=== PATIENT | female | born 1960 | race Caucasian/White ===

== ENCOUNTER 2017-03-03 21:48 | Emergency (ER) | payer BC ==
[2017-03-03 22:05] VITALS: BP 153/104
[2017-03-03] MEDS ORDERED: Ketorolac 60 MG/2 ML SDV IM ONE (22:57)
--- NOTE | 2017-03-03 22:59 | EDM.PDOC ---
ED HPI GENERAL MEDICAL PROBLEM - General Chief Complaint: ENT Problem Stated Complaint: TOOTH PAIN HEADACHE Time Seen by Provider: 03/03/17 22:42 Source of Information: Reports: Patient History Limitations: Reports: No Limitations - History of Present Illness INITIAL COMMENTS - FREE TEXT/NARRATIVE: 57 year old female presents for evaluation and treatment of dental pain. She reports on 03-01-17 she broke a crown on an upper left molar. She has since developed severe pain extending from the tooth into her face and sinuses and let ear. She has appreciated swelling to her face. She reports a bad taste in her mouth. She states she has tried to get in with dental but due to the March 02 holiday she has not yet been able to get in. She could no longer take the pain thus she decided to come to the ER. Denies any fevers or vomiting. Report the bad taste in her mouth makes her nauseated. Left Head Pain Score (Numeric/FACES): 9 - Related Data Allergies Allergy/AdvReac Type Severity Reaction Status Date / Time alprazolam [From Xanax] Allergy Anaphylactic Verified 03/03/17 22:06 Shock codeine Allergy Airway Verified 03/03/17 22:08 Tightness shellfish derived Allergy Airway Verified 03/03/17 22:06 Tightness sumatriptan [From Imitrex] Allergy Burning Verified 03/03/17 22:06 pain meds Allergy Hyperactivi Uncoded 03/03/17 22:06 ty Home Meds: Home Meds ALPRAZolam [Xanax] 0.5 mg PO DAILY 03/03/17 [History] Levothyroxine 75 mcg PO DAILY 03/03/17 [History] Methylphenidate HCl [Methylphenidate ER] 54 mg PO DAILY 03/03/17 [History] Past Medical History Neurological History: Reports: Migraines, Seizure Psychiatric History: Reports: ADHD, Anxiety Endocrine/Metabolic History: Reports: Other (See Below) Other Endocrine/Metabolic History: gastric bypass Social & Family History - Tobacco Use Smoking Status *Q: Never Smoker - Caffeine Use Caffeine Use: Reports: None - Recreational Drug Use Recreational Drug Use: No ED ROS ENT - Review of Systems Review Of Systems: See Below Constitutional: Denies: Fever HEENT: Reports: Dental Pain (upper left molar), Ear Pain (left), Other (reports a bad tast in her mouth) Skin: Reports: Erythema (reports swelling, erythema and increased warmth to her face) Neurological: Denies: Headache ED EXAM, ENT - Physical Exam Exam: See Below Exam Limited By: No Limitations General Appearance: Alert, WD/WN, Moderate Distress Eye Exam: Bilateral Eye: PERRL Ears: Normal External Exam, Normal Canal, Hearing Grossly Normal, Normal TMs Nose: Normal Inspection Mouth/Throat: Dental Abcess (#14), Dental Pain (#14), Dental Tenderness (#14), Dental Trauma (broken tooth #14), Gum Swelling (#14) Neck: Normal Inspection, Non-Tender. No: Lymphadenopathy (L), Lymphadenopathy ( R) Respiratory/Chest: No Respiratory Distress, Lungs Clear, Normal Breath Sounds Cardiovascular: Normal Peripheral Pulses, Regular Rate, Rhythm Neurological: Alert, Oriented, Normal Cognition Psychiatric: Normal Affect, Normal Mood Skin: Erythema (erythema to the left face from the maxilla to the zygomatic process) Course - Vital Signs Last Recorded V/S: Last Vital Signs Temp 37.1 C 03/03/17 22:01 Pulse 85 03/03/17 22:01 Resp 18 03/03/17 22:01 BP 153/104 H 03/03/17 22:01 Pulse Ox 99 03/03/17 22:01 - Orders/Labs/Meds Meds: Medications Discontinued Medications Generic Name Dose Route Start Last Admin Trade Name Court PRN Reason Stop Dose Admin Ketorolac Tromethamine 60 mg 03/03/17 22:57 03/03/17 23:06 Toradol IM 03/03/17 22:58 60 mg ONETIME ONE Administration Departure - Departure Time of Disposition: 23:12 Disposition: Home, Self-Care 01 Condition: Fair Clinical Impression: Dental abscess - Discharge Information Instructions: Dental Abscess, [id number] Referrals: Rin Galo MD [Primary Care Provider] - Forms: ED Department Discharge Additional Instructions: Prescription for Augmentin 1 tablet twice a day for 10 days Rx for Colstrip 5-325 one to 2 tabs every 4 to 6 hours #20 these Rx were given through [facility] Take Augmentin as prescribed. I recommend you take this with food as Augmentin can be hard on the stomach. you may also take a probiotic to help reduce upset stomach, diarrhea and nausea from the Augmentin. This is an antibiotic and will help with a dental abscess. [id number] ibuprofen for pain. For severe pain take Colstrip one or 2 tabs every 4-[address] or operating machinery within 12 hours of taking the Colstrip. Colstrip can be habit-forming, I recommend you take as few these as needed to control you pain. Follow-up with your dentist as soon as you're able to. Please return to the ER if your symptoms change or worsen.
== END 2017-03-03 23:30 | disposition home or self-care (01) ==
LOC: JD.ED 21:48
DX: K04.7 Periapical abscess without sinus (principal); G43.909 Migraine, unspecified, not intractable, without status migrainosus; F41.9 Anxiety disorder, unspecified; Z98.84 Bariatric surgery status; Z79.899 Other long term (current) drug therapy; Z88.6 Allergy status to analgesic agent; Z88.8 Allergy status to other drugs, medicaments and biological substances; Z91.013 Allergy to seafood
CPT/HCPCS: 96372; 99284; J1885; 99283

== ENCOUNTER 2022-02-01 12:12 | Emergency (ER) | payer BC ==
[2022-02-01 12:29] VITALS: BP 125/102; PULSE 83
[2022-02-01] MEDS ORDERED: Sodium Chloride 0.9% 10 ML Syringe FLUSH PRN (13:03)
[2022-02-01] MEDS ORDERED: Aspirin 81 MG Tab.Chew PO ONE (13:15)
[2022-02-01 13:57] LABS: ESTIMATED GFR > 60 mL/min (>60)
== END 2022-02-01 15:30 | disposition home or self-care (01) ==
LOC: JD.ED 12:12 → SUPCPDRO 12:12 → JD.ED 15:30
DX: R07.89 Other chest pain (principal); E03.9 Hypothyroidism, unspecified; Z86.16 Personal history of COVID-19; Z79.899 Other long term (current) drug therapy; Z88.8 Allergy status to other drugs, medicaments and biological substances; Z88.5 Allergy status to narcotic agent; Z91.013 Allergy to seafood
CPT/HCPCS: 36415; 71045; 80053; 84484; 85025; 85379; 86140; 93005; 99285; A9270; J3490; 93010; 99284

== ENCOUNTER 2023-09-23 11:56 | Emergency (ER) | payer BC ==
[2023-09-23 12:23] VITALS: PULSE 82
[2023-09-23] MEDS ORDERED: Sodium Chloride 0.9% 10 ML Syringe FLUSH PRN (12:59)
[2023-09-23] MEDS ORDERED: Ketorolac 30 MG/ML SDV IVPUSH ONE (13:01)
[2023-09-23] MEDS ORDERED: diphenhydrAMINE 50 MG/ML SDV IVPUSH ONE (13:01)
[2023-09-23] MEDS ORDERED: Sodium Chloride 0.9% 1,000 ML IV STA (13:01)
[2023-09-23] MEDS ORDERED: Ondansetron 4 MG/2 ML SDV IVPUSH ONE (13:01)
[2023-09-23 13:43] LABS: BASOPHILS ABSOLUTE AUTO 0.1 K/mm3 (0.0-0.2); BASOPHILS PERCENT AUTO 0.5 % (0.0-1.0); EOSINOPHILS ABSOLUTE AUTO 0.1 K/mm3 (0.0-0.4); EOSINOPHILS PERCENT AUTO 1.1 % (0.0-6.0); HEMOGLOBIN 13.8 gm/dl (12.0-16.0); IMMATURE GRAN ABSOLUTE AUTO 0.02 K/mm3 (0.00-0.05); IMMATURE GRAN PERCENT AUTO 0.2 % (0.0-0.4); LYMPHOCYTES ABSOLUTE AUTO 3.2 K/mm3 (1.0-4.8); LYMPHOCYTES PERCENT AUTO 33.4 % (24.0-44.0); MEAN CORPUSCULAR HEMOGLOBIN 30.3 pg (28.0-32.0); MEAN CORPUSCULAR HGB CONC 33.7 g/dl (32.0-36.0); MEAN CORPUSCULAR VOLUME 90.1 fl (83.0-99.0); MEAN PLATELET VOLUME 9.7 fl (9.4-12.3); MONOCYTES ABSOLUTE AUTO 0.6 K/mm3 (0.0-0.8); MONOCYTES PERCENT AUTO 6.2 % (0.0-8.0); NEUTROPHILS ABSOLUTE AUTO 5.6 K/mm3 (1.8-7.7); NEUTROPHILS PERCENT AUTO 58.6 % (41.0-71.0); PLATELET COUNT,PLT 266 K/mm3 (150-400); RED BLOOD CELL COUNT 4.55 M/mm3 (4.10-5.30); WHITE BLOOD CELL COUNT,WBC 9.49 K/mm3 (3.9-11.3)
[2023-09-23] MEDS ORDERED: Caffeine 200 MG Tab PO ONE (13:50)
[2023-09-23 14:14] LABS: CORONAVIRUS COVID-19 NAA NEGATIVE (NEGATIVE); INFLUENZA A NAA NEGATIVE (NEGATIVE); RESPIRATORY SYNCYTIAL VIR NAA NEGATIVE (NEGATIVE)
[2023-09-23 14:23] LABS: ALANINE AMINOTRANSFERASE,ALT 34 U/L (14-59); ALBUMIN 3.7 g/dl (3.4-5.0); ALKALINE PHOSPHATASE 99 U/L (46-116); ANION GAP 14.2 (5-15); ASPARTATE AMNIOTRANSFERASE,AST 20 U/L (15-37); BILIRUBIN TOTAL 0.3 mg/dL (0.2-1.0); BLOOD UREA NITROGEN,BUN 13 mg/dL (7-18); BUN/CREATININE RATIO 14.4 (14-18); C-REACTIVE PROTEIN <0.2 mg/dL (<1.0); CALCIUM 9.7 mg/dL (8.5-10.1); CARBON DIOXIDE,CO2 28 mEq/L (21-32); CHLORIDE,CL 107 mEq/L (98-107); CREATININE 0.9 mg/dL (0.55-1.02); ESTIMATED GFR 73 mL/min (>60); GLUCOSE RANDOM 95 mg/dL (70-99); POTASSIUM,K 3.2 mEq/L (3.5-5.1); PROTEIN TOTAL,TP 7.6 g/dl (6.4-8.2); SODIUM,NA 146 mEq/L (136-145)
[2023-09-23] MEDS ORDERED: Acetaminophen/HYDROcodone 325-5 MG Tab PO ONE (15:13)
[2023-09-23 16:14] VITALS: BP 154/92
== END 2023-09-23 15:50 | disposition home or self-care (01) ==
LOC: JD.ED 11:56
DX: R51.9 Headache, unspecified (principal); E03.9 Hypothyroidism, unspecified; Z91.013 Allergy to seafood; Z88.5 Allergy status to narcotic agent; Z88.8 Allergy status to other drugs, medicaments and biological substances
CPT/HCPCS: 0241U; 36415; 70450; 80053; 84443; 85025; 86140; 96361; 96374; 96375; 99284; A9270; J1200; J1885; J2405; J3490; J7030

== ENCOUNTER 2024-03-11 12:10 | Emergency (ER) | payer BC ==
[2024-03-11] MEDS: Lactated Ringers 1,000 ML IV ONE (12:15)
[2024-03-11] MEDS ORDERED: Ketamine 200 MG/20 ML MDV IVPUSH ONE (12:17)
[2024-03-11] MEDS ORDERED: Ketamine 500 mg/10 ML MDV IV ONE (12:17)
[2024-03-11] MEDS ORDERED: fentaNYL 100 MCG/2 ML SDV IVPUSH ONE (12:17)
[2024-03-11] MEDS ORDERED: Midazolam 1 MG/ML 5 ML SDV IVPUSH ONE (12:17)
[2024-03-11] MEDS ORDERED: Rocuronium 50 MG/5 ML Vial IVPUSH ONE (12:19)
[2024-03-11] MEDS: propofoL 100 ML IV SCH (12:20)
[2024-03-11] MEDS ORDERED: propofoL 100 ML IV SCH (12:22)
[2024-03-11] MEDS: Sodium Chloride 0.9% 1,000 ML IV ONE (12:25)
[2024-03-11 12:33] LABS: BASOPHILS ABSOLUTE AUTO 0.2 K/mm3 (0.0-0.2); BASOPHILS PERCENT AUTO 0.6 % (0.0-1.0); EOSINOPHILS ABSOLUTE AUTO 0.3 K/mm3 (0.0-0.4); EOSINOPHILS PERCENT AUTO 1.1 % (0.0-6.0); HEMATOCRIT 43.2 % (37.0-47.0); IMMATURE GRAN ABSOLUTE AUTO 0.76 K/mm3 (0.00-0.05); IMMATURE GRAN PERCENT AUTO 2.5 % (0.0-0.4); LYMPHOCYTES ABSOLUTE AUTO 6.8 K/mm3 (1.0-4.8); LYMPHOCYTES PERCENT AUTO 22.5 % (24.0-44.0); MEAN CORPUSCULAR HEMOGLOBIN 29.2 pg (28.0-32.0); MEAN CORPUSCULAR HGB CONC 34.7 g/dl (32.0-36.0); MEAN PLATELET VOLUME 12.9 fl (9.4-12.3); MONOCYTES ABSOLUTE AUTO 0.6 K/mm3 (0.0-0.8); NEUTROPHILS ABSOLUTE AUTO 21.7 K/mm3 (1.8-7.7); NEUTROPHILS PERCENT AUTO 71.3 % (41.0-71.0); NRBC ABSOLUTE 0.03 (0.00-0.02); NRBC PERCENT 0.1 % (0.0-0.2); RED BLOOD CELL COUNT 5.14 M/mm3 (4.10-5.30); WHITE BLOOD CELL COUNT,WBC 30.35 K/mm3 (3.9-11.3)
[2024-03-11 12:34] LABS: PLATELET COUNT,PLT 1699 K/mm3 (150-400)
[2024-03-11] MEDS ORDERED: Diphtheria,Pertussis(Acell),Tetanus Vaccine 0.5 ML Syringe ONE (12:37)
[2024-03-11] MEDS: fentaNYL 100 MCG/2 ML SDV IVPUSH ONE (12:57)
[2024-03-11 13:07] LABS: BASE EXCESS ARTERIAL -12.8 (-2-2.0); BICARBONATE,ARTERIAL 14.8 meq/L (22.0-26.0); O2 SATURATION ARTERIAL 99.5 % (96.0-97.0)
[2024-03-11] MEDS: Piperacillin/Tazobactam 4.5 GM in Sodium Chloride 0.9% 100 ML IV ONE (13:20)
[2024-03-11 13:22] LABS: TROPONIN I HIGH SENSITIVITY 19 pg/mL (<=51)
[2024-03-11 13:36] LABS: A/G RATIO 0.6 (1-2); ALBUMIN 2.1 g/dl (3.4-5.0); ANION GAP 20.4 (5-15); BLOOD UREA NITROGEN,BUN 17 mg/dL (7-18); BUN/CREATININE RATIO 13.1 (14-18); CALCIUM 8.2 mg/dL (8.5-10.1); CARBON DIOXIDE,CO2 17 mEq/L (21-32); CHLORIDE,CL 112 mEq/L (98-107); CREATININE 1.3 mg/dL (0.55-1.02); ESTIMATED GFR 46 mL/min (>60); SODIUM,NA 145 mEq/L (136-145)
[2024-03-11 13:37] LABS: ALANINE AMINOTRANSFERASE,ALT 28 U/L (14-59); BILIRUBIN TOTAL 0.7 mg/dL (0.2-1.0)
[2024-03-11 13:38] LABS: CREATINE KINASE,CK 295 U/L (26-192); GLUCOSE RANDOM 204 mg/dL (70-99); PROTEIN TOTAL,TP 5.8 g/dl (6.4-8.2)
[2024-03-11 13:39] LABS: MAGNESIUM 2.6 mg/dL (1.8-2.4)
[2024-03-11 13:40] LABS: POTASSIUM,K 4.4 mEq/L (3.5-5.1)
[2024-03-11 13:47] LABS: SLIDE REVIEW ABNORMAL SMEAR
[2024-03-11] MEDS: Diphtheria,Pertussis(Acell),Tetanus Vaccine 0.5 ML Syringe IM ONE (14:18)
[2024-03-11] MEDS: Sodium Chloride 0.9% 10 ML Syringe FLUSH PRN (14:21)
[2024-03-11 15:12] VITALS: BP 135/98; PULSE 147
[2024-03-13] MEDS: propofoL 100 ML ONE (07:37)
== END 2024-03-11 13:35 ==
LOC: JD.ED 12:10
DX: T21.22XA Burn of second degree of abdominal wall, initial encounter (principal); T20.20XA Burn of second degree of head, face, and neck, unspecified site, initial encounter; T22.00XA Burn of unspecified degree of shoulder and upper limb, except wrist and hand, unspecified site, initial encounter; T24.002A Burn of unspecified degree of unspecified site of left lower limb, except ankle and foot, initial encounter; T24.001A Burn of unspecified degree of unspecified site of right lower limb, except ankle and foot, initial encounter; T21.04XA Burn of unspecified degree of lower back, initial encounter; E03.9 Hypothyroidism, unspecified; Z23 Encounter for immunization; Z86.16 Personal history of COVID-19; Z79.890 Hormone replacement therapy; Z79.899 Other long term (current) drug therapy; Z88.5 Allergy status to narcotic agent; Z88.8 Allergy status to other drugs, medicaments and biological substances; Z88.6 Allergy status to analgesic agent; Z91.013 Allergy to seafood; X08.8XXA Exposure to other specified smoke, fire and flames, initial encounter
CPT/HCPCS: 31500; 36415; 36556; 36600; 51702; 71045; 72170; 80053; 82550; 82803; 83605; 83735; 84484; 85025; 86900; 86901; 90471; 90715; 93005; 96361; 96365; 96375; 96376; 99291; C1751; G0390; J2250; J2543; J2704; J3010; J3490; J7030; J7120